=== PATIENT | female | born 1945 | race Caucasian/White ===

== ENCOUNTER 2016-06-21 15:11 | Emergency (ER) | payer MEDICARE, OTHER ==
[~2016-06-21] VITALS: Ht 172.7 cm; Wt 134.5 kg
[2016-06-21 15:40] VITALS: Ht 172.7 cm; Wt 134.5 kg
[2016-06-21] MEDS ORDERED: SOD CHLORIDE 0.9% 1,000 ML IV STA (20:44)
[2016-06-21] MEDS ORDERED: HYDROmorphONE 1 MG/ML SYG IV STA (20:44)
[2016-06-21] MEDS ORDERED: ONDANSETRON 4 MG INJ IV STA (20:44)
[2016-06-21] MEDS ORDERED: DICLOFENAC SODIUM 37.5 MG/ML VIAL IV STA (20:44)
[2016-06-21 21:21] LABS: ADD UMIC YES; URINE BILIRUBIN (Dip) NEGATIVE (NEGATIVE); URINE BLOOD (Dip) 2+ (NEGATIVE); URINE COLOR LT. YELLOW (YELLOW); URINE GLUCOSE (Dip) >=1000 % (NEGATIVE); URINE KETONES (Dip) 15 (NEGATIVE); URINE LEUKOCYTE ESTERASE (Dip) NEGATIVE (NEGATIVE); URINE NITRITE (Dip) NEGATIVE (NEGATIVE); URINE TOTAL PROTEIN (Dip) 1+ (NEGATIVE); URINE UROBILINOGEN (Dip) 0.2 E.U./dL (0.1-1.0)
[2016-06-21 21:24] LABS: HEMATOCRIT 39.1 % (37.0-47.0); HEMOGLOBIN 12.9 g/dl (12.0-16.0); MEAN CORPUSCULAR HEMOGLOBIN 27.4 pg (29.0-33.0); MEAN CORPUSCULAR VOLUME 83.2 fl (82.0-101.0); MEAN PLATELET VOLUME 7.6 fl (7.4-10.4); PLATELET COUNT 344 10^3/UL (140-440); RED CELL DISTRIBUTION WIDTH 16.6 % (11.5-14.5); UNCORRECTED WBC 16.1 10^3/ul (4.8-10.8); WHITE BLOOD COUNT 16.1 10^3/ul (4.8-10.8)
[2016-06-21 21:28] LABS: ALBUMIN 4.7 g/dl (3.3-4.9)
[2016-06-21 21:31] LABS: ALBUMIN/GLOBULIN RATIO 1.11; BILIRUBIN,INDIRECT 0.3 mg/dl (0-1.1); BILIRUBIN,TOTAL 0.3 mg/dl (0.2-1.3); CALCIUM 10.2 mg/dl (8.4-10.2); CREATININE 1.26 mg/dl (0.44-1.00); TOTAL PROTEIN 8.9 g/dl (6.1-8.1)
[2016-06-21 21:32] LABS: CONDITION 1; LH ANALYZER COMMENTS 1; SUSPECT 1
[2016-06-21 21:44] LABS: SQUAMOUS EPITHELIAL CELL,UR RARE
--- NOTE | 2016-06-21 21:52 | RADRPT ---
PROCEDURE: CT abdomen and pelvis without intravenous contrast. CLINICAL INDICATION: Right flank pain. TECHNIQUE: CT of the abdomen/pelvis was performed utilizing axial images with reconstructions in s agittal and coronal planes. The administered radiation dose is CTDI 24 mGy, DLP 1300 ninth mGy-cm. COMPARISON: No pertinent prior examinations were submitted for comparison. FINDINGS: Visualized Chest: The visualized lung bases are clear. Abdomen: The spleen, pancreas, gallbladder,and adrenal glands are unremarkable. The liver is diffusely dec reased in attenuation, compatible with hepatic steatosis. There is mild right hydronephrosis secondary to a 5-6 mm calculus in the proximal right ureter. The left kidney is without hydronephrosis. Small nonobstructive calculi are noted within the lower angeline es of both kidneys. There is no evidence of bowel obstruction. The appendix is normal. No intra-abdominal free air is seen. Diverticula are noted along the sigmoid colon without evidence of diverticulitis. There is no evidence of intra-abdominal adenopathy or free fluid. Pelvis: There is no evidence of pelvic adenopathy. The uterus and ovaries are without enlargement. The uri nary bladder is unremarkable. There is no pelvic free fluid. Osseous structures: Unremarkable. IMPRESSION: Mild right-sided obstructive uropathy secondary to a 5-6 mm calculus in the proximal right ureter. Bilateral nephrolithiasis. Hepatic steatosis. RPTAT: HIKT .Brian Garcia MD, Date Time Electronically viewed and signed by .Brian Garcia MD, on 06/21/2016 21:52 .T/
[2016-06-21 22:05] LABS: LYMPHOCYTES # 0.5 10^3/ul (0.8-2.9); MONOCYTE # 0.5 10^3/ul (0.3-0.9); NEUTROPHIL # 14.5 10^3/ul (1.6-7.5)
[2016-06-21] MEDS ORDERED: IBUP-1542 PO (22:06)
[2016-06-21] MEDS ORDERED: CIPR500T4 PO (22:06)
[2016-06-21] MEDS ORDERED: HYDR-902 PO (22:06)
[2016-06-21 22:07] LABS: PLATELET ESTIMATE PLT APPEAR ADEQUATE
--- NOTE | 2016-06-21 22:20 | ERD ---
ER Documentation Chief Complaint Date/Time DATE: 06/21/16 TIME: 22:18 Chief Complaint HAS FLANK PAIN SENT BY DR BERNARD HPI Patient is a 71-year-old female with hypertension, diabetes, and high cholesterol who presents with flank pain. She says that she has had 2 attacks of "kidney pain". She saw Dr. Bernard today who told her that she had blood in her urine. He sent her to the emergency department for an evaluation. She has no history of kidney stone in the past. She took 2 Tylenol which made her feel better. The pain started at 5 AM. It has been constant pain which radiates to her right flank. She has no fevers. Her primary doctor is Dr. Bernard. ROS All systems reviewed and are negative except as per history of present illness. Medications Home Meds Active Scripts Ciprofloxacin Hcl* (Ciprofloxacin Hcl*) 500 Mg Tablet, 500 MG PO BID for 7 Days , TAB Prov:GREY DUBOSE MD 06/21/16 Ibuprofen* (Motrin*) 600 Mg Tab, 600 MG PO Q6H Y for PAIN AND OR ELEVATED TEMP, #30 TAB Prov:GREY DUBOSE MD 06/21/16 Hydrocodone/Acetaminophen ([place] 10-325 Tablet) 1 Each Tablet, 1 TAB PO Q6H Y for PAIN, #16 TAB Prov:GREY DUBOSE MD 06/21/16 Allergies Allergies: Coded Allergies: Penicillins (Verified Allergy, Unknown, RASH, 06/21/16) PMhx/Soc History of Surgery: Yes (L leg) Hx Cardiac Disorders: Yes (HTN, CHOLESTEROL) Hx Miscellaneous Medical Probl: Yes (DM) Hx Alcohol Use: No Hx Substance Use: No Hx Tobacco Use: No Smoking Status: Never smoker FmHx Family History: diabetes Physical Exam Vitals Vital Signs Date Time Temp Pulse Resp B/P Pulse Ox O2 Delivery O2 Flow Rate FiO2 06/21/16 17:37 72 18 215/88 99 Room Air 06/21/16 15:40 98.7 69 18 224/86 100 Physical Exam Const: Mild distress secondary to flank Head: Atraumatic Eyes: Normal Conjunctiva ENT: Normal External Ears, Nose and Mouth. Neck: Full range of motion..~ No meningismus. Resp: Clear to auscultation bilaterally Cardio: Regular rate and rhythm, no murmurs Abd: Soft, right upper quadrant pain without rebound or guarding Skin: No petechiae or rashes Back: No midline or flank tenderness Ext: No cyanosis, or edema Neur: Awake and alert Psych: Normal Mood and Affect Result Diagram: 06/21/16 2100 06/21/16 2100 Results 24 hrs Laboratory Tests Test 06/21/16 21:00 Alanine Aminotransferase (ALT/SGPT) 22IU/L Albumin 4.7g/dl Albumin/Globulin Ratio 1.11 Alkaline Phosphatase 93IU/L Anion Gap 22 Aspartate Amino Transf (AST/SGOT) 22IU/L Band Neutrophils % 4.0% Blood Morphology Comment Blood Urea Nitrogen 24mg/dl Calcium Level 10.2mg/dl Carbon Dioxide Level 23mmol/L Chloride Level 96mmol/L Creatinine 1.26mg/dl Direct Bilirubin 0.00mg/dl Globulin 4.20g/dl Glucose Level 208mg/dl Hematocrit 39.1% Hemoglobin 12.9g/dl Indirect Bilirubin 0.3mg/dl Lipase 109U/L Lymphocytes # 0.510^3/ul Lymphocytes % 3.0% Mean Corpuscular Hemoglobin 27.4pg Mean Corpuscular Hemoglobin Concent 33.0g/dl Mean Corpuscular Volume 83.2fl Mean Platelet Volume 7.6fl Monocytes # 0.510^3/ul Monocytes % 3.0% Neutrophils # 14.510^3/ul Neutrophils % 90.0% Platelet Count 72814^3/UL Platelet Estimate PLT APPEAR ADEQUATE Potassium Level 5.0mmol/L Red Blood Count 4.7010^6/ul Red Cell Distribution Width 16.6% Sodium Level 136mmol/L Total Bilirubin 0.3mg/dl Total Protein 8.9g/dl Urine Bilirubin NEGATIVE Urine Clarity CLEAR Urine Color LT. YELLOW Urine Glucose >=1000% Urine Hemoglobin 2+ Urine Ketones 15 Urine Leukocyte Esterase NEGATIVE Urine Microscopic RBC 2-5/HPF Urine Microscopic WBC 0-2/HPF Urine Nitrite NEGATIVE Urine Specific Flanagan 1.020 Urine Squamous Epithelial Cells RARE Urine Total Protein 1+ Urine Urobilinogen 0.2 E.U./dL Urine pH 5.0 White Blood Count 16.110^3/ul Current Medications Medications (Trade) Dose Ordered Sig/Renato Route PRN Reason Start Time Stop Time Status Last Admin Dose Admin Sodium Chloride (NS) 1,000 ml @ 1,000 mls/hr Q1H STAT IV 06/21/16 20:44 06/21/16 21:43 DC 06/21/16 21:21 Hydromorphone HCl (Dilaudid) 1 mg ONCE STAT IV 06/21/16 20:44 06/21/16 20:45 DC 06/21/16 21:21 Ondansetron HCl (Zofran Inj) 4 mg ONCE STAT IV 06/21/16 20:44 06/21/16 20:45 DC 06/21/16 21:21 Diclofenac Sodium (Dyloject) 37.5 mg ONCE STAT IV 06/21/16 20:44 06/21/16 20:45 DC 06/21/16 21:21 Procedures/MDM CT scan shows right sided kidney stone measuring 5-6 mm per radiology. Patient is a 71-year-old female who presents with right-sided flank pain. She was found to have a 5-6 mm kidney stone. I believe this is likely the cause of her pain. There is no sign of infection in the urine at this time and I doubt infected kidney stone. I doubt bowel obstruction. I doubt sepsis. I believe outpatient management is appropriate. She will need close follow-up with urology and I have given her information for Dr. Ahn as she may require outpatient lithotripsy. The patient will be given a prescription for ibuprofen , [place], and Cipro and can return for any worsening symptoms. The patient was provided with copies of her laboratory studies and CT scan prior to discharge. Departure Diagnosis: Primary Impression: Kidney stone Additional Impression: Flank pain Condition: Fair Patient Instructions: Flank Pain, Uncertain Cause, Kidney Stone W/ Colic Referrals: CAROLYN AHN MD Additional Instructions: SPECIALIST: YOU HAVE A MEDICAL CONDITION WHICH REQUIRES YOU TO SEE A SPECIALIST WITHIN THE NEXT 1-2 DAYS. PLEASE FOLLOW UP WITH YOUR PRIMARY PHYSICIAN FOR REFFERAL.IF YOU DO NOT HAVE A PRIMARY CARE PHYSICIAN AND/OR YOU CAN NOT AFFORD TO SEE A PHYSICIAN THE FOLLOWING RESOURCES HAVE BEEN SUPPLIED TO YOU. IT IS YOUR RESPONSIBILITY TO BE SEEN BY THE SPECIALIST GREY DUBOSE MD Jun 21, 2016 22:20
[2016-06-21 22:34] VITALS: BP 126/57; PULSE 69; RESP 18
== END 2016-06-21 22:34 | disposition home or self-care (01) ==
LOC: E/R 15:11
DX: N20.0 Calculus of kidney (principal); R10.11 Right upper quadrant pain; I10 Essential (primary) hypertension; E11.9 Type 2 diabetes mellitus without complications
CPT/HCPCS: 36415; 74176; 80053; 81001; 81003; 83690; 85025; 96374; 96375; 99285; J1170; J2405; J7030